=== PATIENT | male | born 1990 | race Caucasian/White ===

== ENCOUNTER 2022-02-06 11:59 | Emergency (ER) | payer OTHER ==
[2022-02-06 13:24] LABS: Amphetamine Not Detected (NotDetected); Barbiturates Screen Not Detected (NotDetected); Benzodiazepine Screen Detected (NotDetected); Cocaine Metabolite Screen Detected (NotDetected); Methadone Not Detected (NotDetected); Methamphetamine Not Detected (NotDetected); Opiate Screen Not Detected (NotDetected); Oxycodone Screen Not Detected (NotDetected); Phencyclidine (PCP) Not Detected (NotDetected); THC/Cannabinoid Screen Detected (NotDetected); Tricyclic Screen Not Detected (NotDetected)
[2022-02-06 13:31] LABS: ALT (SGPT) 59 U/L (8-55); AST (SGOT) 54 U/L (5-34); Acetaminophen Less than 10.0 mcg/mL (10.0-30.0); Albumin 4.3 g/dL (3.5-5.0); Alcohol 373 mg/dL (Less than 10); Alkaline Phosphatase 53 U/L (40-110); Anion Gap 16 mmol/L (10-20); BUN (Urea Nitrogen) 8 mg/dL (8.9-20.6); Bilirubin, Total 0.7 mg/dL (0.2-1.2); Calc. Creatinine Clearance 0 mL/min (70-130); Carbon Dioxide 28 mmol/L (22-29); Chloride 107 mmol/L (98-107); Estimated GFR 118; Globulin 2.9 g/dL (2.4-3.5); Glucose 104 mg/dL (70-105); Potassium 3.9 mmol/L (3.5-5.1); Protein, Total 7.2 g/dL (6.0-8.3); Salicylate Less than 8.0 mg/dL (15.0-30.0); Sodium 147 mmol/L (136-145)
[2022-02-06 13:37] LABS: #Basophils 0.1 10x3/uL (0.0-0.2); #Eosinphils 0.9 10x3/uL (0.0-0.5); #Monocytes 0.6 10x3/uL (0.0-1.1); #Neutrophils 3.5 10x3/uL (1.5-8.4); %Basophils 1.8 % (0.0-2.0); %Eosinophils 10.9 % (0.0-6.0); %Lymphocytes 35.2 % (18.0-47.0); %Monocytes 7.8 % (0.0-10.0); %Neutrophils 43.9 % (40.0-75.0); Hemoglobin 16.1 g/dL (13.5-17.5); Mean Corpuscular HGB CONC 36.2 g/dL (32.0-36.0); Mean Corpuscular Volume 94.1 fl (81.2-95.1); Mean Platelet Volume 10.6 fl (7.4-10.4); Platelet Count 257 10x3/uL (150-450); RBC Distribution Width 12.1 % (11.5-14.5); Red Blood Cell (RBC) Count 4.73 10x6/uL (4.32-5.72); White Blood Cell (WBC) Count 7.9 10x3/uL (3.5-10.5)
[2022-02-06] MEDS ORDERED: Nicotine 14 MG PATCH ONE (15:24)
[2022-02-07 00:21] LABS: Acetaminophen Less than 10.0 mcg/mL (10.0-30.0); Alcohol 167 mg/dL (Less than 10); Salicylate Less than 8.0 mg/dL (15.0-30.0)
[2022-02-07] MEDS ORDERED: Lorazepam 1 MG TAB ONE (05:06)
[2022-02-07] MEDS ORDERED: Ondansetron ODT 4 MG TAB ONE (05:06)
== END 2022-02-06 12:32 | disposition home or self-care (01) ==
LOC: CSHERS 11:59
DX: R45.851 Suicidal ideations (principal); F10.129 Alcohol abuse with intoxication, unspecified; F19.10 Other psychoactive substance abuse, uncomplicated; R79.89 Other specified abnormal findings of blood chemistry
CPT/HCPCS: 80053; 80306; 80307; 85025; 99285